=== PATIENT | female | born 1945 | race Caucasian/White ===

== ENCOUNTER 2017-07-18 15:30 | Emergency (ER) | payer OTHER ==
[~2017-07-18] VITALS: Ht 160 cm; Wt 81.7 kg
[~2017-07-18 15:30] MED LIST: CLON.1 PO; CONEST1.25 PO; GLUMETZA PO; METO100ER PO; TELM80/12.5 PO
[2017-07-18 15:40] LABS: Calcium, Ionized (POC) 1.05 mmol/L (1.10-1.46); Chloride (POC) 98 mmol/L (98-108); Creatinine (POC) 2.1 mg/dL (0.6-1.0); Glucose (ISTAT POC) 423 mg/dL (70-99); Hemoglobin (POC) 13.3 g/dL (12.0-16.0); Potassium (POC) 3.5 mmol/L (3.5-5.5); Sodium (POC) 137 mmol/L (135-148); Total CO2 (POC) 12 mmol/L (21-32)
[2017-07-18 15:41] LABS: PCO2 Arterial 81 mmHg (35-45); PO2 Arterial 165 mmHg (80-100)
[2017-07-18 15:53] LABS: pH Blood Arterial < 6.81 (7.35-7.45)
[2017-07-18 16:01] LABS: Hematocrit 43.3 % (33.0-51.0); Hemoglobin 12.2 g/dL (11.5-16.0); Mean Corpuscular HGB 28.6 pg (26.0-34.0); Mean Corpuscular HGB Conc 28.2 g/dL (31.5-36.5); Mean Corpuscular Volume 101 fL (80-100); Mean Platelet Volume 10.8 fL (9.1-12.4); NRBC ABSOLUTE 0.04 K/mm3 (0.00-0.02); NRBC Auto 0.4 /100 WBC (0.0-0.2); Platelet Count 168 K/mm3 (150-400); RDW Standard Deviation 56.4 fL (35.1-46.3); Red Blood Cell Count 4.27 M/mm3 (3.80-5.20); White Blood Cell Count 10.44 K/mm3 (4.00-11.30)
[2017-07-18 16:07] LABS: PO2 Arterial 95.9 mmHg (80-100)
[2017-07-18 16:08] LABS: PCO2 Arterial 97.8 mmHg (35-45)
[2017-07-18 16:23] LABS: Anion Gap 32 mmol/L (6-16); Blood Urea Nitrogen 25 mg/dL (8-24); Bun/Creatinine Ratio 11.6 (12.0-20.0); CO2, Blood 10 mmol/L (21-32); CPK Creatine Kinase 402 U/L (26-193); Calcium, Blood 8.9 mg/dL (8.5-10.1); Chloride, Blood 97 mmol/L (98-108); Creatine Kinase MB 6.3 ng/mL (0.0-3.6); Creatine Kinase MB Index 1.6 (0.0-4.0); Creatinine, Blood 2.15 mg/dL (0.40-1.00); Glomerular Filtration Rate 24 (60-); Glucose, Blood 429 mg/dL (70-99); HDL Cholesterol 22 mg/dL (>39); Magnesium, Blood 2.7 mg/dL (1.6-2.4); Potassium, Blood 3.6 mmol/L (3.5-5.5); Sodium, Blood 139 mmol/L (136-145); Triglycerides 193 mg/dL (30-160); Very Low Density Lipoprot Chol 38 mg/dL (6-32)
[2017-07-18 16:25] LABS: Troponin I 0.158 ng/mL (0.000-0.040)
[2017-07-18 16:26] LABS: CHOL/HDL RATIO Unable to Calculate; Cholesterol <50 mg/dL (50-200); LDL/HDL RATIO Unable to Calculate; Low Density Lipoprotein Chol Unable to Calculate mg/dL (0-110)
[2017-07-18 16:32] LABS: International Normalized Ratio 1.28; Prothrombin Time Results 13.4 Sec (9.7-11.5)
[2017-07-18 16:41] LABS: BAND PERCENT MAN 17 % (0-8); BASOPHILS PERCENT MAN 0 % (0-2); EOSINOPHILS PERCENT MAN 1 % (0-6); LYMPHOCYTES ABSOLUTE MAN 5.42 K/mm3 (0.84-5.20); LYMPHOCYTES PERCENT MAN 52 % (21-46); METAMYELOCYTE ABSOLUTE MAN 0.93 K/mm3 (0.00-0.00); METAMYELOCYTE PERCENT MAN 9 % (0-0); MONOCYTES ABSOLUTE MAN 0.93 K/mm3 (0.16-1.47); MONOCYTES PERCENT MAN 9 % (4-13); NEUTROPHILS ABSOLUTE MAN 3.02 K/mm3 (1.96-9.15); SEG NEUTROPHILS PERCENT MAN 12 % (41-73); TOTAL CELLS COUNTED 100
== END 2017-07-18 16:15 ==
LOC: ER 15:30
PROVIDERS: Emergency Medicine
DX: I21.4 Non-ST elevation (NSTEMI) myocardial infarction (principal); I46.2 Cardiac arrest due to underlying cardiac condition; I10 Essential (primary) hypertension; E11.9 Type 2 diabetes mellitus without complications
CPT/HCPCS: 31720; 36415; 36600; 51702; 80047; 80048; 80061; 82550; 82553; 82803; 83605; 83735; 84484; 85014; 85025; 85610; 85730; 86850; 86900; 86901; 92950; 93005; 93010; 94002; 96365; 96372; 96375; 99291; J7030; J7060